=== PATIENT | male | born 1955 | race Caucasian/White ===

== ENCOUNTER 2024-11-11 13:32 | Emergency (ER) | payer OTHER, SELFPAY ==
[2024-11-11 13:35] VITALS: BP 118/78
--- NOTE | 2024-11-11 16:18 | ED.GENMED ---
History of Present Illness
General
Chief Complaint: Skin Surface Trauma
Source: patient
Exam Limitations: none
Time Seen by Provider: 11/11/24 15:22
Nursing documentation reviewed up to this point in time: agreed with
History of Present Illness
History of Present Illness:
Patient is a 69-year-old male with history GERD, HIV who presents to the emergency department with a laceration of his right third digit. Patient states that he was attempting to cut off a piece of duct tape from his new weightlifting equipment with
a razor blade when it slipped slicing his right third digit. He was unable to stop the home came directly to the emergency department.This was a new razor blade.
Patient denies any numbness/tingling or difficulties with range of motion in right third digit.
Patient is not on any blood thinners.
He is not sure when his last tetanus booster was.
Past History
Past History
ED Past Medical History: Other (Hep C, HIV +)
ED Past Surgical History: Appendectomy
Social History
Tobacco: Non-smoker
Alcohol: None
Drug: None and Former user
Personal: Partner
Living: with family
Employment: Employed
Family History
Family History: Other (n/c)
Review of Systems
Review of Systems
Allergies reviewed?: Yes
All Other Systems: ROS reviewed and negative except as documented in HPI and ROS
Phy Exam
Physical Exam
Physical Exam:
Vitals: Patient's vital signs are stable. Afebrile
General: Patient is well appearing, no acute distress
Skin: Approximately 3 cm curved laceration of palmar aspect of right third digit between DIP and PIP joints extending laterally to dorsal aspect of finger. Actively bleeding on exam.
Head: Normocephalic, atraumatic
Throat: Protecting airway
Neck: Normal ROM, no cervical spine tenderness
Cardiac: Regular rate
Pulm: No apparent respiratory distress
Abdomen: Nondistended
Extremities: Laceration to right 3rd digit as above. Full ROM in DIP, PIP, MCP of affected finger against resistance, sensation intact, normal capillary refill
Neuro: Grossly intact
Psychiatric: Normal affect.
Course
Orders/Labs/Results
Orders:
Orders
11/11/24 16:18
Tetanus/Diphth/Acelpertussis [Adacel] 0.5 ml IM .ONCE ONE
Vital Signs
Initial and Last Documented VS:
Initial Vital Signs
Temp Pulse Resp BP Pulse Ox
98.8 F 87 18 118/78 99
11/11/24 13:35 11/11/24 13:35 11/11/24 13:35 11/11/24 13:35 11/11/24 13:35
Last Documented Vital Signs
Temp Pulse Resp BP Pulse Ox
98.8 F 85 18 118/78 98
11/11/24 13:35 11/11/24 18:15 11/11/24 18:15 11/11/24 13:35 11/11/24 18:15
Procedures
Laceration Closure
Right Third Finger:
Status of Wound: clean
Size of Wound in cm: 3
Description of Wound Edges: sharp
Preparation: cleaned with saline and cleaned with Betadine
Anesthesia: 1% Lidocaine and Digital-Regional
Revision/Debridement: routine- no revision
Wound exploration: explored to base- no FB
Type of Closure: single layer closure and interrupted sutures
Skin Closure Material: 4-0 nylon
Number of sutures: 4
MDM/Problems Addressed
Differential Diagnosis Includes:
Not limited to: laceration, abrasion, tendon injury, etc
MDM/Problems Addressed:
69 y.o M presenting with a laceration approximately 3cm in length on the right 3rd finger. The injury was sustained while cutting a piece of duct tape with a razor blade. On examination, the wound was superficial to the extensor tendon, with no
evidence of tendon, nerve, or vascular injury. The patient was able to fully extend and flex the finger, and capillary refill was intact distally. Sensation to light touch was preserved.
Wound will require primary closure with sutures today. Verbal consent obtained by patient. A The wound was thoroughly irrigated with normal saline and explored to rule out foreign bodies or deeper injury. After cleansing with NS and betadine, the
laceration was closed with 4 simple interrupted 4-0 nylon sutures using sterile technique under local anesthesia with 1% lidocaine (digital block). Patient tolerated procedure well. Placed nonstick dressign and ginfer splint.
Tetanus status was updated. The patient was discharged in stable condition with instructions for wound care, signs of infection, and when to seek medical attention. Suture removal was advised in 10�14 days due to location over a joint. The patient
was instructed to limit use of the affected hand and to monitor for redness, swelling, drainage, or loss of function.
No imaging or antibiotics were indicated at this time. Pain is expected to be mild and manageable with [id number] analgesics such as acetaminophen or ibuprofen.
Chronic conditions affecting care:
N/A
Acute Exacerbation and/or Progression of Chronic Illness:
N/A
*Pulse Oximetry
Patient hypoxic: no
*EKG
Interpreted by ED Provider?: NA
*[facility] [place] Interpretation
Rate: [place]- N/A
*Critical Care Note
Total Time (30-74mins, 75-104mins- exclusive of procedures): Not Applicable
ED Attending Note
-
Portions of this chart may have been created with voice recognition software.� Occasional wrong word or��sound alike� substitutions may have occurred due to the inherent limitations of voice recognition software.
Discharge Plan
Departure
Patient Disposition: Home (Routine Discharge)
Date of Disposition: 11/11/24
Time of Disposition: 17:57
Patient with high blood pressure during this ER visit?: No
Condition: Good
Covid-19: Not Applicable
Discharge Problem:
Laceration of finger
Instructions: Wound Care (DC), Laceration Repair With Stitches (DC)
Prescriptions:
No Action
ofspwil-hol-potge-tenof alafen [Genvoya] 1 TABLET tablet
1 tab PO DAILY
sucralfate 1 GM/10 ML suspension
1 gm PO ACHS Qty: 100 0RF
Referrals:
Jericho Marsh MD [Family Provider] - Follow up in 10 days
Activity Restrictions/Additional Instructions:
RETURN TO THE EMERGENCY DEPARTMENT WITH ANY FEVER, CHILLS, BLEEDING THAT WOULD NOT STOP AT HOME, OR ANY SIGNS OF INFECTION AROUND WOUND INCLUDING WORSENING REDNESS, SWELLING, PURULENT DRAINAGE FROM WOUND, RED STREAKING AWAY FROM WOUND, OR ANY OTHER
CONCERNS
- As discussed�your laceration was closed with 4 sutures today in emergency department. These will need to be 14 days. You can have a send primary care, urgent care, or emergency department. You should keep wound clean, dry, and covered until
sutures are removed. Please keep finger in splint to limit range of motion.
- Monitor closely for signs of infection.
Monitor your symptoms closely and return to the emergency department with any acute worsening/new symptoms, or any other concerns
Interventions
Interventions:
*Risk Screen - Suicide Last Done: 11/11/24 13:37
*General Assessment Last Done: 11/11/24 13:37
*Neglect/Abuse Screening Last Done: 11/11/24 13:37
*ED COVID-19 Vaccine History Last Done: 11/11/24 13:37
*Nursing Disposition Last Done: 11/11/24 18:15
ED-Skin Assessment Last Done: 11/11/24 15:53
Discharge Date and Time
Discharge Date/Time: 11/11/24 18:17
Print Language: [id number]
[2024-11-11] MEDS: ADACEL 0.5 ML IM (17:03)
== END 2024-11-11 18:17 | disposition home or self-care (01) ==
LOC: EMR 13:32
PROVIDERS: EMERGENCY PHYSICIAN Emergency Medicine; FAMILY PHYSICIAN Family Medicine
DX: S61.212A Laceration without foreign body of right middle finger without damage to nail, initial encounter (principal); X58.XXXA Exposure to other specified factors, initial encounter; Z23 Encounter for immunization; K21.9 Gastro-esophageal reflux disease without esophagitis; Z21 Asymptomatic human immunodeficiency virus [HIV] infection status; Z86.19 Personal history of other infectious and parasitic diseases; Z90.49 Acquired absence of other specified parts of digestive tract
CPT/HCPCS: 99282; 12002; 90471; 90715